=== PATIENT | male | born 1960 | race Caucasian/White ===

== ENCOUNTER 2023-11-24 10:39 | Outpatient (AMB) | payer OTHER, MEDICAID, SELFPAY ==
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
[2023-11-24 11:16] VITALS: BP 130/84; PULSE 96; RESP 14; O2SAT 98
== END 2023-11-24 11:29 | disposition home or self-care (01) ==
PROVIDERS: Visit Provider Anesthesiology
DX: G89.4 Chronic pain syndrome (principal); M47.812 Spondylosis without myelopathy or radiculopathy, cervical region; M96.1 Postlaminectomy syndrome, not elsewhere classified; M54.81 Occipital neuralgia; M46.1 Sacroiliitis, not elsewhere classified; M53.3 Sacrococcygeal disorders, not elsewhere classified; M54.16 Radiculopathy, lumbar region
CPT/HCPCS: 99204

== ENCOUNTER → 2023-11-24 10:39 | Outpatient (BNVA) | payer OTHER, MEDICAID, SELFPAY | PROVIDERS: Visit Provider Anesthesiology ==

== ENCOUNTER 2024-01-04 19:41 | Outpatient (REF) | payer MEDICARE, MEDICAID, SELFPAY ==
--- NOTE | ~2024-01-04 | MR_ITS ---
EXAMINATION: MR LUMBAR SPINE WITHOUT CONTRAST CLINICAL INFORMATION: 63-year-old with radiculopathy, lumbar region. Left sciatica. COMPARISON: None available. TECHNIQUE: MRI of the lumbar spine was obtained using routine sequences without contrast. FINDINGS: CORONAL ALIGNMENT: There is moderate lumbar levoscoliosis, convex to the left at L2-L3 with mild right to left lateral listhesis at L3-L4 and L4-L5 and mild left to right lateral listhesis at L1-L2. SAGITTAL ALIGNMENT: There is lordotic curvature centered at L4-L5 with slight reversal of the normal lordotic curvature centered at T12-L1. There is trace rotatory anterolisthesis asymmetric to the right at L3-L4 and trace retrolisthesis at L2-L3 and L1-L2 LUMBOSACRAL JUNCTION: Normal. Suspect hypoplastic ribs at T12. VERTEBRAL BODIES: Vertebral body heights are well maintained. DISC SPACES AND ENDPLATES: There is hnogonir-ao-xzkswa asymmetric right-sided disc volume loss at L3-L4 and L2-L3 and mild degrees of disc volume loss at L5-S1 and L4-L5. Endplates appear grossly intact. There is multilevel anterior and paravertebral marginal endplate spurring. 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 BONE MARROW: No significant marrow-replacing process or bone marrow edema. CONUS MEDULLARIS: Terminates at L1-L2. Morphology and signal is normal. INTRADURAL NERVE ROOTS: Within normal limits. L5-S1: There is broad-based disc protrusion centrally and asymmetric to the left encroaching on the left neural foramen with left paravertebral disc osteophyte complex. There is yyplashx-zn-bffyhx left-sided facet joint arthrosis. There is no significant canal stenosis. There is fblcmkhe-va-zwsrrs left-sided neural foraminal stenosis with impingement on the left L5 nerve root. L4-L5: There is concentric disc bulging slightly asymmetric to the left with bilateral paravertebral disc osteophyte complexes and right to left lateral listhesis. There is mild flattening of the dural sac slightly asymmetric to the left and there is moderate left and mild right-sided facet joint arthropathy. No significant canal stenosis. There is moderate left-sided and mild right-sided neural foraminal stenosis, with a 7.5 mm perineural cyst associated with the right dorsal root ganglion nerve sheath. Disc osteophyte complex abuts the exiting left L4 nerve root sleeve. Disc bulge abuts the exiting right L4 nerve root sleeve. L3-L4: There is concentric disc bulging with a superimposed right paramedian extruded disc herniation with mild cephalad migration, with lfvc-gb-aiimcytk flattening of the ventral thecal sac asymmetric to the right. There is also a right foraminal component to this disc herniation. There is hcphtqvl-uu-lpbflp right-sided and rdmw-er-jymfelbh left-sided facet joint arthrosis without central canal stenosis. There is mild left and moderate right subarticular recess stenosis minimally encroaching on the traversing right L4 nerve root. There is moderate right-sided and mild left-sided neural foraminal narrowing. There is a 7.5 mm perineural cyst associated with the exiting left L3 nerve root sleeve. There is moderate right-sided neural foraminal stenosis with encroachment on the exiting right L3 nerve root. L2-L3: Retrolisthesis, disc bulging and flattening of the dural sac is noted with rylnzeom-sf-nddofq facet joint arthropathy on the right without significant canal stenosis. No significant neural foraminal stenosis. L1-L2: There is retrolisthesis and there is broad-based central disc protrusion, slightly asymmetric to the left with a small left subarticular extrusion with slight cephalad migration and mild flattening of the dural sac. Mild bilateral facet joint arthropathy is noted. There is no significant canal or neural foraminal stenosis. At T11-T12, there is a central disc herniation with flattening of the central dural sac without cord impingement. PARAVERTEBRAL AND INCLUDED EXTRASPINAL SOFT TISSUES: The visualized paravertebral soft tissues and included retroperitoneal structures are unremarkable within the limitations of the exam. MR/MR lumbar spine wo con IMPRESSION: 1. Lumbar levoscoliosis, with multilevel subluxations as described above. 2. Multilevel DDD and spondylosis, with multilevel disc bulging and disc herniations as described above without significant spinal canal stenosis. There is multilevel bilateral facet joint arthropathy. Right subarticular recess stenosis at L3-L4 with possible encroachment on the traversing right L4 nerve root. 3. Multilevel bilateral neural foraminal stenosis, most apparent on the left at L5-S1 with left L5 nerve root impingement and, to a lesser degree, bilaterally at L4-L5 and on the right at L3-L4 with encroachment on the exiting nerve roots at these levels. 4. Central disc herniation at T11-T12 without cord impingement. Electronically signed by: Husam Rivas MD 01/25/2024 05:03 PM EDT RP
== END 2024-01-04 19:42 | disposition home or self-care (01) ==
LOC: HO.MRI 19:41
PROVIDERS: Visit Provider Anesthesiology
DX: M54.16 Radiculopathy, lumbar region (principal)
CPT/HCPCS: 72148